=== PATIENT | female | born 1995 | race Caucasian/White ===

== ENCOUNTER 2023-12-27 19:30 | Inpatient (IN) | payer BC ==
[2023-12-27] MEDS: Lactated Ringer's 1,000 ML IV SCH (22:12)
[2023-12-27 22:14] VITALS: BMI 34.4
[2023-12-27] MEDS ORDERED: hydrALAZINE 20 MG/ML VIAL SLOW IVP PRN (22:34)
[2023-12-27] MEDS ORDERED: Acetaminophen 500 MG TAB PO PRN (22:34)
[2023-12-27] MEDS ORDERED: Misoprostol 200 MCG TAB PR PRN (22:34)
[2023-12-27] MEDS ORDERED: Lidocaine 1% (PF) 30 ML VIAL SC PRN (22:34)
[2023-12-27] MEDS ORDERED: Promethazine HCl 25 MG/ML VIAL IM PRN (22:34)
[2023-12-27] MEDS ORDERED: Diphenoxylate HCl/Atropine Tablet PO PRN (22:34)
[2023-12-27] MEDS ORDERED: HYDROcodone/Acetaminophen 5/325 mg Tablet PO PRN (22:34)
[2023-12-27] MEDS ORDERED: Carboprost 250 MCG/ML AMP IM PRN (22:34)
[2023-12-27] MEDS ORDERED: Ondansetron PF 4 MG/2 ML Vial IVP PRN (22:34)
[2023-12-27] MEDS ORDERED: Ibuprofen 800 MG TAB PO PRN (22:34)
[2023-12-27] MEDS ORDERED: Oxytocin 30 units/NS 500 ML 500 ML IV SCH ×2 (22:45)
[2023-12-27 22:58] LABS: Hemoglobin 12.2 g/dL (12.0-15.5); Mean Corpuscular Hemoglobin 29.1 pg (27.0-33.0); Mean Corpuscular Volume 88.3 fL (81.6-98.3); Mean Platelet Volume 10.7 fL (7.4-10.4); Platelet Count 234 10x3/uL (150-450); RBC Distribution Width 13.4 % (11.5-14.5); Red Blood Cell (RBC) Count 4.19 10x6/uL (3.90-5.03); White Blood Cell (WBC) Count 15.7 10x3/uL (3.5-10.5)
[2023-12-27] MEDS: Misoprostol 100 MCG TAB VAG SCH (22:58)
[2023-12-27 23:10] LABS: ALT (SGPT) 12 U/L (8-55); AST (SGOT) 15 U/L (5-34); Albumin 2.8 g/dL (3.5-5.0); Alkaline Phosphatase 248 U/L (40-110); Anion Gap 17 mmol/L (10-20); BUN (Urea Nitrogen) 8 mg/dL (7.0-18.7); Bilirubin, Total 0.4 mg/dL (0.2-1.2); Calc. Creatinine Clearance 177 mL/min (70-130); Carbon Dioxide 17 mmol/L (22-29); Chloride 108 mmol/L (98-107); Estimated GFR 120; Globulin 2.7 g/dL (2.4-3.5); Glucose 113 mg/dL (70-105); Potassium 3.7 mmol/L (3.5-5.1); Protein, Total 5.5 g/dL (6.0-8.3); Sodium 138 mmol/L (136-145)
[2023-12-27 23:29] LABS: Syphilis Antibody Nonreactive (Nonreactive); Syphilis Antibody Index 0.03 S/CO (<1.00 Non-Reactive)
[2023-12-27 23:31] LABS: HBsAg Index 0.19 S/CO (0-0.99); Hep B Surf Ag - L&D Non-Reactive S/CO (NonReactive)
[2023-12-28] MEDS: fentaNYL 50 mcg/mL 1 mL Vial SLOW IVP PRN (15:21)
[2023-12-28] MEDS: fentaNYL/Ropivacaine Epidural 100 ML ONE (17:59)
[2023-12-28] MEDS: Calcium Carbonate 500 MG ChewTAB PO SCH (21:40)
[2023-12-29] MEDS ORDERED: Lanolin Ointment 7 GM TUBE TOP PRN (00:52)
[2023-12-29] MEDS ORDERED: HYDROcodone/Acetaminophen 5/325 mg Tablet PO PRN (00:52)
[2023-12-29] MEDS ORDERED: Ondansetron PF 4 MG/2 ML Vial IVP PRN (00:52)
[2023-12-29] MEDS ORDERED: diphenhydrAMINE 25 MG CAP PO PRN (00:52)
[2023-12-29] MEDS ORDERED: Benzocaine-Menthol 82.5 ML CAN TOP PRN (00:52)
[2023-12-29] MEDS ORDERED: Promethazine HCl 25 MG/ML VIAL IM PRN (00:52)
[2023-12-29] MEDS ORDERED: Preparation H Ointment 28 GM TUBE PR PRN (00:52)
[2023-12-29] MEDS ORDERED: Bisacodyl 10 MG SUPP PR PRN (00:52)
[2023-12-29] MEDS ORDERED: hydrALAZINE 20 MG/ML VIAL SLOW IVP PRN (00:52)
[2023-12-29] MEDS ORDERED: Milk Of Magnesia 30 ML UDCUP PO PRN (00:52)
[2023-12-29] MEDS: Ibuprofen 800 MG TAB PO SCH (05:55)
[2023-12-29] MEDS: Ferrous Sulfate 325 MG TAB PO SCH (07:20)
[2023-12-29] MEDS: Docusate 100 MG CAP PO SCH (07:20)
[2023-12-29] MEDS: Prenatal Vitamin 1 TAB PO SCH (07:20)
[2023-12-29] MEDS ORDERED: Bupivacaine 0.25% HCL 30 ML VIAL ONE (08:00)
[2023-12-29] MEDS: Boostrix 0.5 ML (Tdap) VIAL (>/=7 yrs of age) IM ONE (09:46)
[2023-12-30 11:20] VITALS: BP 120/77; TEMP 98.3
== END 2023-12-30 16:30 | disposition home or self-care (01) | DRG 807 ==
LOC: CSHLD 20:46 → CSHPP 12-29 01:00
PROVIDERS: ADMIT Student in an Organized Health Care Education/Training Program; ATTEND Student in an Organized Health Care Education/Training Program
PROC: 10E0XZZ Delivery of Products of Conception, External Approach (ICD-10-PCS; principal; 2023-12-28)
DX: O13.4 Gestational [pregnancy-induced] hypertension without significant proteinuria, complicating childbirth (principal); Z37.0 Single live birth; Z3A.37 37 weeks gestation of pregnancy; Z79.82 Long term (current) use of aspirin; O99.344 Other mental disorders complicating childbirth; F41.9 Anxiety disorder, unspecified; F90.9 Attention-deficit hyperactivity disorder, unspecified type
CPT/HCPCS: 36415; 51702; 80053; 85027; 86780; 86850; 86900; 86901; 87340; J0665; J3010; J7120